=== PATIENT | male | born 1975 | race Asian ===

== ENCOUNTER 2017-09-12 13:12 | Outpatient (CLI) | payer OTHER | END 2017-09-12 13:13 | disposition home or self-care (01) | LOC: SC 13:12 | PROVIDERS: ATTEND Specialist | DX: G47.30 Sleep apnea, unspecified (principal); R53.83 Other fatigue; R06.83 Snoring; G47.00 Insomnia, unspecified | CPT/HCPCS: 99205; 99212 ==

== ENCOUNTER 2017-11-06 21:35 | Outpatient (CLI) | payer OTHER | END 2017-11-06 21:36 | disposition home or self-care (01) | LOC: SC 21:35 | PROVIDERS: ATTEND Internal Medicine Pulmonary Disease | DX: G47.30 Sleep apnea, unspecified (principal); R06.83 Snoring | CPT/HCPCS: 95810 ==

== ENCOUNTER 2017-11-19 11:03 | Outpatient (CLI) | payer OTHER | END 2017-11-19 11:04 | disposition home or self-care (01) | LOC: SC 11:03 | PROVIDERS: ATTEND Nurse Practitioner Family | DX: G47.10 Hypersomnia, unspecified (principal); G47.00 Insomnia, unspecified; R06.83 Snoring | CPT/HCPCS: 99212; 99214 ==

== ENCOUNTER 2022-06-19 09:20 | Emergency (ER) | payer OTHER ==
--- NOTE | 2022-06-19 09:48 | ED Physician Documentation ---
History of Present Illness - Stated complaint Stated Complaint: SOA/BLURRED VISION - History obtained from History obtained from: Patient - Additonal information Additional information: 46-year-old gentleman with type 2 diabetes not on insulin. He is active duty in the [employer] He was feeling well when he got up this morning but around 6 30-6 45 developed presyncope and then had to lean against the wall for a while. He developed bilateral blurry vision and shortness of breath. He still feels mildly dizzy and there is some very minor chest pain associated with this. The shortness of breath has resolved, the blurry vision in both eyes continues. He is never had anything like this before. Review of Systems Ten Systems: 10 systems reviewed and negative Constitutional: denies: Fever, Chills, Fatigue Cardiac: reports: Chest pain / pressure. denies: Palpitations, Pedal edema, Calf pain Respiratory: reports: Dyspnea. denies: Cough PD PAST MEDICAL HISTORY - Allergies Allergies/Adverse Reactions: Allergies Allergy/AdvReac Type Severity Reaction Status Date / Time No Known Drug Allergies Allergy Verified 06/19/22 09:46 PD ED PE NORMAL - Vitals Vital signs reviewed: Yes - General General: Alert and oriented X 3, No acute distress - HEENT HEENT: PERRL, EOMI - Neck Neck: Supple, no meningeal sign, No bony TTP - Cardiac Cardiac: RRR, No murmur - Respiratory Respiratory: No respiratory distress, Clear bilaterally - Abdomen Abdomen: Non tender - Back Back: No CVA TTP, No spinal TTP - Derm Derm: Normal color, Warm and dry - Extremities Extremities: No deformity, No tenderness to palpate, No edema, No calf tenderness / cord - Neuro Neuro: Alert and oriented X 3, 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, No motor deficit, No sensory deficit, Normal speech, Other (NIH stroke scale done at 9:40 AM is 0) Eye Opening: Spontaneous Motor: Obeys Commands Verbal: Oriented GCS Score: 15 Results - Vitals Vitals: Vital Signs - 24 hr 06/19/22 06/19/22 06/19/22 09:30 09:48 10:17 Temperature 37.2 C Heart Rate 69 68 70 Respiratory 18 15 20 Rate Blood Pressure 151/93 H 151/93 H 149/99 H O2 Saturation 98 98 100 06/19/22 10:30 Temperature Heart Rate 64 Respiratory 18 Rate Blood Pressure 152/105 H O2 Saturation 100 Oxygen O2 Source Room air - EKG (time done) 0928 Rate: Rate (enter#) (72) Rhythm: NSR Bee: Normal Intervals: Normal [place] Ischemia: Non specific changes (Mildly abnormal T waves especially in the anterior precordium). No: ST elevation c/w ischemia, ST depression - Labs Labs: Laboratory Tests 06/19/22 06/19/22 06/19/22 09:39 09:39 09:39 WBC 6.8 RBC 6.27 H Hgb 14.4 Hct 47.2 MCV 75.3 L MCH 23.0 L MCHC 30.5 L RDW 13.6 Plt Count 230 MPV 8.5 Neut # (Auto) 4.1 Lymph # (Auto) 2.0 [place] # (Auto) 0.6 Eos # (Auto) 0.1 Baso # (Auto) 0.0 Absolute Nucleated RBC 0.00 Nucleated RBC % 0.0 Sodium 139 Potassium 3.9 Chloride 103 Carbon Dioxide 30 Anion Gap 6.0 BUN 15 Creatinine 0.8 Estimated GFR (MDRD) 104 Glucose 132 H Calcium 8.8 Total Bilirubin 0.6 AST 24 ALT 37 Alkaline Phosphatase 69 Troponin I High Sens 2.6 Total Protein 7.2 Albumin 4.4 Globulin 2.8 Albumin/Globulin Ratio 1.6 Lipase 49 - Rads (name of study) CT of the head without contrast and single view chest x-ray are both unremarkable. Radiology: EMP read contemporaneously PD MEDICAL DECISION MAKING - ED course ED course: 46-year-old gentleman with diabetes presents with dizzy episode starting at 630. It was associate with bilateral blurry vision. His ED work-up was negative except for a borderline EKG with negative troponin. His symptoms resolved while in the department and his visual acuity was normal. Close follow-up was advised with discussion of signs and symptoms that would necessitate urgent reevaluation. Departure - Departure Disposition: 01 Home, Self Care Clinical Impression: Dizziness Condition: Good Record reviewed to determine appropriate education?: Yes Instructions: ED Dizziness [facility] Comments: The cause of your dizzy episode is not clear, that said your testing here is normal with normal blood counts, negative Cardiac enzymes, normal head CT and chest x-ray. Reasonable [place]. Consider stress testing and/or echocardiography. Return for new or worsening symptoms. Take it easy today. Forms: Activity restrictions
[2022-06-19 09:52] LABS: BASOPHILS % (AUTO) 0.4 %; EOSINOPHILS # (AUTO) 0.1 10^3/uL (0.0-0.7); HCT - HEMATOCRIT 47.2 % (42.0-52.0); HGB - HEMOGLOBIN 14.4 g/dL (14.0-18.0); LYMPHOCYTES % (AUTO) 29.1 %; MEAN CORPUSCULAR HGB CONC 30.5 g/dL (32.0-36.0); MEAN CORPUSCULAR VOLUME 75.3 fL (80.0-94.0); MEAN PLATELET VOLUME 8.5 fL (7.4-11.4); MONOCYTES # (AUTO) 0.6 10^3/uL (0.0-1.0); MONOCYTES % (AUTO) 8.8 %; NEUTROPHILS # (AUTO) 4.1 10^3/uL (1.5-6.6); NEUTROPHILS % (AUTO) 60.4 %; PLT - PLATELET COUNT 230 10^3/uL (130-450); RED BLOOD COUNT 6.27 10^6/uL (4.70-6.10); RED CELL DISTRIBUTION WIDTH 13.6 % (12.0-15.0); WHITE BLOOD COUNT 6.8 x10^3/uL (4.8-10.8)
[2022-06-19 10:02] LABS: ALBUMIN 4.4 g/dL (3.2-5.5); ALBUMIN/GLOBULIN RATIO 1.6 (1.0-2.2); BILIRUBIN,TOTAL 0.6 mg/dL (0.2-1.0); CALCIUM 8.8 mg/dL (8.5-10.3); CREATININE 0.8 mg/dL (0.6-1.2); POTASSIUM 3.9 mmol/L (3.5-5.0); TOTAL PROTEIN 7.2 g/dL (6.7-8.2)
--- NOTE | 2022-06-19 10:04 | XRAY Report ---
PROCEDURE: Chest 1 View X-Ray INDICATIONS: Chest Pain TECHNIQUE: One view of the chest was acquired. COMPARISON: None FINDINGS: Surgical changes and devices: None. Lungs and pleura: No pleural effusions or pneumothorax. Lungs are clear. Mediastinum: Mediastinal contours appear normal. Heart size is normal. Bones and chest wall: No suspicious bony lesions. Overlying soft tissues appear unremarkable. IMPRESSION: No acute cardiopulmonary pathology. Reviewed by: Grabiel Cazares MD on 06/19/2022 10:02 AM PDT Approved by: Grabiel Cazares MD on 06/19/2022 10:02 AM PDT Station ID: [id number]
--- NOTE | 2022-06-19 10:10 | CT Report ---
PROCEDURE: HEAD WO INDICATIONS: dizzy TECHNIQUE: Noncontrast 4.5 mm thick angled axial sections acquired from the foramen magnum to the vertex. For r adiation dose reduction, the following was used: automated exposure control, adjustment of mA and/or kV according to patient size. COMPARISON: None. FINDINGS: Image quality: Excellent. CSF spaces: Basal cisterns are patent. No extra-axial fluid collections. Ventricles are normal in size and shape. Brain: No midline shift. No intracranial masses or hemorrhage. Sam-white matter interface is norm al. Skull and face: Calvarium and visualized facial bones are intact, without suspicious lesions. Sinuses: Visualized sinuses and mastoids are clear. IMPRESSION: 1. No acute intracranial process. Reviewed by: Angelica Regan MD on 06/19/2022 10:08 AM PDT Approved by: Angelica Regan MD on 06/19/2022 10:08 AM PDT Station ID: [id number]
[2022-06-19 10:32] VITALS: BP 152/105
== END 2022-06-19 10:44 | disposition home or self-care (01) ==
LOC: ED 09:20
DX: R42 Dizziness and giddiness (principal)
CPT/HCPCS: 36415; 80053; 83690; 84484; 85025; 93005; 99284

== ENCOUNTER 2024-06-05 19:02 | Emergency (ER) | payer OTHER ==
--- NOTE | 2024-06-05 19:34 | ED Physician Documentation ---
History of Present Illness - Stated complaint Stated Complaint: SOA/CHEST PX - Chief complaint Chief Complaint: General - History obtained from History obtained from: Patient, Family () - Additonal information Additional information: 48-year-old man with past medical history of diabetes, high blood pressure, hyperlipidemia, non-smoker, presents with intermittent chest pain and shortness of breath over the past week with uncontrollable head shaking starting today along with left temporal headache and difficulty speaking starting around 5 PM. states the last time she saw him normal was 3 PM. He also is complaining that his "eyes are wide open". Review of Systems Constitutional: denies: Fever, Chills Eyes: denies: Loss of vision Ears: denies: Loss of hearing Nose: denies: Rhinorrhea / runny nose Throat: denies: Sore throat Cardiac: reports: Chest pain / pressure, Palpitations Respiratory: reports: Dyspnea. denies: Cough GI: denies: Abdominal Pain, Nausea, Vomiting, Diarrhea Neurologic: reports: Difficulty speaking, Headache. denies: Generalized weakness, Focal weakness, Numbness, Near syncope, Syncope, Seizure, Confused, Head injury, LOC Psychiatric: reports: Anxiety PD PAST MEDICAL HISTORY - Past Medical History Past Medical History: Yes Cardiovascular: Hypertension, High cholesterol Endocrine/Autoimmune: Type 2 diabetes - Past Surgical History Past Surgical History: No - Allergies Allergies/Adverse Reactions: Allergies Allergy/AdvReac Type Severity Reaction Status Date / Time No Known Drug Allergies Allergy Verified 06/05/24 19:05 - Social History Does the pt smoke?: No Smoking Status: Never smoker Does the pt drink ETOH?: No Does the pt have substance abuse?: No - Immunizations Immunizations are current?: Yes - POLST Patient has POLST: No PD ED PE NORMAL - Vitals Vital signs reviewed: Yes - General General: Alert and oriented X 3, No acute distress, Well developed/nourished, Other (head bobbing and regular twitching of the eyes) - HEENT HEENT: Atraumatic, PERRL, EOMI, Moist mucous membranes, Pharynx benign - Neck Neck: Supple, no meningeal sign, No adenopathy, Thyroid normal - Cardiac Cardiac: RRR - Respiratory Respiratory: No respiratory distress, Clear bilaterally - Abdomen Abdomen: Non tender, Non distended - Derm Derm: Normal color, Warm and dry - Neuro Neuro: Alert and oriented X 3, 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 able to form full, intelligible sentences. ) Eye Opening: Spontaneous Motor: Obeys Commands Verbal: Oriented GCS Score: 15 - Psych Psych: Other (anxious mood and affect) Results - Vitals Vitals: Vital Signs - 24 hr 06/05/24 06/05/24 19:05 19:38 Temperature 36.5 C Heart Rate 81 78 Respiratory 16 Rate Blood Pressure 176/100 H 161/108 H O2 Saturation 99 98 Oxygen O2 Source Room air - EKG (time done) 1918 EKG releavant findings:: EKG personally interpreted by author of this note. Relevant findings are: Rate: Rate (enter#) (75) Rhythm: NSR Jakin: LAD Intervals: Normal [place] QRS: Normal Ischemia: Normal ST segments - Labs Labs: Laboratory Tests 06/05/24 06/05/24 19:30 19:30 WBC 6.8 RBC 5.82 Hgb 13.4 L Hct 44.4 MCV 76.3 L MCH 23.0 L MCHC 30.2 L RDW 13.7 Plt Count 277 MPV 9.0 Neut # (Auto) 3.6 Lymph # (Auto) 2.5 [place] # (Auto) 0.6 Eos # (Auto) 0.1 Baso # (Auto) 0.0 Absolute Nucleated RBC 0.00 Nucleated RBC % 0.0 Troponin I High Sens 2.5 Lipase 56 Ethyl Alcohol < 10.0 PD Medical Decision Making - ED course ED course: 48yM with pmh dm, htn, hld, anxiety, p/w 7:30pm - decision made to call code stroke. 7:45pm - d/w Dr. Chandra, telestroke neurologist. NIHSS 1 for dysarthria. This may not be a CVA and in any case his NIHSS is too low to likely benefit from tPA. she will f/u his CT scans in case he has LVO but otherwise signing off. 8pm - shaking and stuttering speech has improved significantly s/p ativan. this appears to be primary psychogenic origin of symptoms. will f/u ct imaging and labwork and likely plan to dc home with resources and counseling. return precautions given. Departure - Departure Clinical Impression: Headache, Stuttering, Twitching, Anxiety Condition: Stable Forms: PCP List
[2024-06-05 19:36] LABS: BASOPHILS % (AUTO) 0.3 %; EOSINOPHILS # (AUTO) 0.1 10^3/uL (0.0-0.7); EOSINOPHILS % (AUTO) 0.9 %; HCT - HEMATOCRIT 44.4 % (42.0-52.0); HGB - HEMOGLOBIN 13.4 g/dL (14.0-18.0); LYMPHOCYTES # (AUTO) 2.5 10^3/uL (1.5-3.5); LYMPHOCYTES % (AUTO) 37.1 %; MEAN CORPUSCULAR HGB CONC 30.2 g/dL (32.0-36.0); MEAN CORPUSCULAR VOLUME 76.3 fL (80.0-94.0); MONOCYTES # (AUTO) 0.6 10^3/uL (0.0-1.0); MONOCYTES % (AUTO) 8.3 %; NEUTROPHILS # (AUTO) 3.6 10^3/uL (1.5-6.6); NEUTROPHILS % (AUTO) 53.1 %; PLT - PLATELET COUNT 277 10^3/uL (130-450); RED BLOOD COUNT 5.82 10^6/uL (4.70-6.10); RED CELL DISTRIBUTION WIDTH 13.7 % (12.0-15.0); WHITE BLOOD COUNT 6.8 x10^3/uL (4.8-10.8)
[2024-06-05] MEDS ORDERED: iohexoL-300 100 ML VIAL ONE (19:36)
[2024-06-05] MEDS: LORazepam 2 MG/ML VIAL IVP STA (19:41)
[2024-06-05] MEDS: SODIUM CHLORIDE 0.9% 1,000 ML IV STA (19:42)
[2024-06-05 19:57] LABS: TROPONIN I HIGH SENSITIVITY 2.5 ng/L (2.3-19.7)
[2024-06-05 19:59] LABS: ETOH - ETHANOL < 10.0 mg/dL; LIPASE 56 U/L (11-82)
[2024-06-05 20:06] LABS: ALBUMIN 4.6 g/dL (3.2-5.5); ALBUMIN/GLOBULIN RATIO 1.8 (1.0-2.2); ALKALINE PHOSPHATASE 56 IU/L (42-121); ALT ALANINE AMINOTRANSFERASE 28 IU/L (10-60); AST ASPARTATE AMINOTRANSFERASE 17 IU/L (10-42); BILIRUBIN,TOTAL 0.4 mg/dL (0.2-1.0); BUN - BLOOD UREA NITROGEN 15 mg/dL (6-20); CALCIUM 9.4 mg/dL (8.5-10.3); CARBON DIOXIDE - CO2 28 mmol/L (21-32); CHLORIDE 105 mmol/L (101-111); CREATININE 0.9 mg/dL (0.6-1.3); GFR - MDRD 90 (>89); GLUCOSE 146 mg/dL (74-104); POTASSIUM 3.9 mmol/L (3.5-4.5); SODIUM 141 mmol/L (135-145); TOTAL PROTEIN 7.2 g/dL (6.4-8.9)
[2024-06-05] MEDS: iohexoL-300 100 ML VIAL IVP ONE (20:10)
--- NOTE | 2024-06-05 20:15 | CT Report ---
PROCEDURE: Head W/O Stroke Protocol INDICATIONS: difficulty speaking since 5pm TECHNIQUE: Noncontrast 4.5 mm thick angled axial sections acquired from the foramen magnum to the vertex, with c oronal reformats. For radiation dose reduction, the following was used: automated exposure control, adjustment of mA and/or kV according to patient size. COMPARISON: Head CT 06/19/2022. FINDINGS: Image quality: Excellent. CSF spaces: Basal cisterns are patent. No extra-axial fluid collections. Ventricles are normal in size and shape. Brain: No midline shift. No intracranial masses or hemorrhage. Sam-white matter interface is norm al. Skull and face: Calvarium and visualized facial bones are intact, without suspicious lesions. Sinuses: Trace mucosal thickening in the left maxillary sinus. Visualized sinuses and mastoids are o therwise clear. IMPRESSION: No acute intracranial pathology Results were communicated to Dr. Fernandez at 06/05/2024 8:12 PM PDT. This study fulfills neurological imaging criteria for inclusion or exclusion of acute stroke therapie s based on available published neurological imaging guidelines. Reviewed by: Michael Denson MD on 06/05/2024 8:13 PM PDT Approved by: Michael Denson MD on 06/05/2024 8:13 PM PDT Station ID: [id number]
--- NOTE | 2024-06-05 20:34 | XRAY Report ---
PROCEDURE: Chest 1V INDICATIONS: Chest Pain TECHNIQUE: One view of the chest was acquired. COMPARISON: None. FINDINGS: Surgical changes and devices: None. Lungs and pleura: No pleural effusions or pneumothorax. Lungs are clear. Lower lung volumes. Mediastinum: Mediastinal contours appear normal. Heart size is normal. Bones and chest wall: No suspicious bony lesions. Right right-sided rib fractures. Overlying soft ti ssues appear unremarkable. IMPRESSION: No acute cardiopulmonary process. Reviewed by: Michael Denson MD on 06/05/2024 8:33 PM PDT Approved by: Michael Denson MD on 06/05/2024 8:33 PM PDT Station ID: [id number]
[2024-06-05 20:40] LABS: AMPHETAMINE SCREEN,URINE NEGATIVE (NEGATIVE); BARBITURATE SCREEN,UR NEGATIVE (NEGATIVE); BENZODIAZEPINES SCREEN, URINE NEGATIVE (NEGATIVE); BUPRENORPHINE SCREEN, URINE NEGATIVE (NEGATIVE); COCAINE SCREEN URINE NEGATIVE (NEGATIVE); METHADONE SCREEN, URINE NEGATIVE (NEGATIVE); METHAMPHETAMINES SCREEN, URINE NEGATIVE (NEGATIVE); OPIATE SCREEN, URINE NEGATIVE (NEGATIVE); OXYCODONE SCREEN, URINE NEGATIVE (NEGATIVE); THC CANNABINOID SCREEN, URINE NEGATIVE (NEGATIVE); TRICYCLIC ANTIDEPRESSANT,URINE NEGATIVE (NEGATIVE)
--- NOTE | 2024-06-05 20:40 | CT Report ---
PROCEDURE: Angio Head/Neck INDICATIONS: code stroke protocol TECHNIQUE: After the administration of intravenous contrast, 1 mm thick sections acquired from the aortic arch t hrough the [place]. 3-dimensional nsfvykk-bhpfozaww-syifdhmgei (MIP) and/or volume renderin g reformats were acquired of the central intracranial vasculature and neck separately. For radiation dose reduction, the following was used: automated exposure control, adjustment of mA and/or kV acco rding to patient size. CONTRAST: 100 ML OMNI 300 COMPARISON: Same day noncontrast head CT. FINDINGS: Image quality: Diagnostic. HEAD CT: CSF Spaces: Basal cisterns are patent. No extra-axial fluid collections. Ventricles are normal in size and shape. Brain: No significant abnormality is seen for scanning technique. Skull and face: Calvarium and visualized facial bones appear intact, without suspicious lesions. Sinuses: Visualized sinuses and mastoids are clear. HEAD CT ANGIOGRAPHY: Anterior circulation: Intracranial internal carotid arteries are normal in size and flow. The flow within the paired anterior cerebral arteries is normal and symmetric. The flow within the middle cer ebral arteries is normal and symmetric. The anterior communicating artery is seen. No aneurysms are seen. Posterior circulation: Visualized portions of the vertebral arteries demonstrate normal caliber, and join to form a normal appearing basilar artery. Flow within the posterior cerebral arteries is norm al and symmetric. No aneurysms are seen. NECK CT ANGIOGRAPHY: Carotid system: The great vessels demonstrate a conventional anatomy as they arise from the aortic a rch. The origins of the common carotid arteries appear patent. The common carotid arteries demonstr ate normal caliber and courses. The bifurcation regions are both widely patent. The internal caroti d arteries demonstrate normal calibers and courses. Posterior circulation: The origins of the vertebral arteries both appear widely patent. The more mackenzie perior extracranial portions of both vertebral arteries also demonstrate normal courses and calibers. They join to form a normal appearing basilar artery. Soft tissues: Visualized neck soft tissues demonstrate no suspicious abnormalities. Bones: No suspicious bony lesions. Visualized cervical spine appears normally aligned. IMPRESSION: No significant intracranial arterial abnormality is seen. No significant abnormality is seen within the arteries of the neck. The estimate of stenosis included in the report of the imaging study was calculated using the NASCET method Reviewed by: Michael Denson MD on 06/05/2024 8:39 PM PDT Approved by: Michael Denson MD on 06/05/2024 8:39 PM PDT Station ID: [id number]
[2024-06-05 22:10] VITALS: BP 145/92; O2SAT 97
== END 2024-06-05 22:22 | disposition home or self-care (01) ==
LOC: ED 19:02
DX: R51.9 Headache, unspecified (principal); F98.5 Adult onset fluency disorder; R25.3 Fasciculation; F41.9 Anxiety disorder, unspecified; E11.9 Type 2 diabetes mellitus without complications; I10 Essential (primary) hypertension; E78.5 Hyperlipidemia, unspecified
CPT/HCPCS: 36415; 70450; 70496; 70498; 71045; 80053; 80306; 82077; 83690; 84484; 85025; 93005; 99284; 99285; J2060; Q9967